=== PATIENT | male | born 1945 | race Caucasian/White ===

== ENCOUNTER 2018-07-08 11:52 | Inpatient (IN) | payer OTHER ==
[~2018-07-08] VITALS: Ht 175.3 cm; Wt 63.5 kg
[2018-07-08] MEDS ORDERED: SODIUM CHLORIDE 0.9% 1,000 ML IVB ONE (12:40)
[2018-07-08 13:25] LABS: Basophils # (auto) 0 uL; Basophils % (auto) 0.6 % (0.0-2.0); Eosinophils # (auto) 0 uL; Eosinophils % (auto) 0.8 % (0.0-7.0); Hematocrit 41.3 % (41.0-53.0); Hemoglobin 13.9 g/dL (13.5-17.5); Lymphocytes # (auto) 0.8 uL; Lymphocytes % (auto) 19.4 % (10.0-50.0); Mean Corpuscular Hemoglobin 30.2 pg (28.0-32.0); Mean Corpuscular Hgb Conc. 33.8 g/dL (32.0-36.0); Mean Corpuscular Volume 89.3 fL (80.0-100.0); Monocytes # (auto) 0.6 uL; Monocytes % (auto) 13.3 % (0.0-12.0); Neutrophils # (auto) 2.7 uL; Neutrophils % (auto) 65.9 % (37.0-80.0); Nucleated Red Blood Cells % 0.2 %; Platelet Count (auto) 161 10^3/uL (140-450); Red Blood Cells 4.62 10^6/uL (4.5-5.90); Red Cell Distribution Width 14.1 % (11.8-14.3); White Blood Cell 4.1 10^3/uL (4.4-10.8)
[2018-07-08 13:25] LABS: Urine Bacteria NONE SEEN /hpf (None Seen); Urine Blood Negative /uL (Negative); Urine Mucus FEW (None Seen); Urine Specific Gravity 1.008 (1.001-1.035); Urine WBC 1 /hpf (0 - 3)
[2018-07-08 13:41] LABS: INR 0.96 (0.9-1.15); Partial Thromboplastin Time 28.2 sec (23.78-33.04); Prothrombin Time 10.3 sec (9.27-12.13)
[2018-07-08 13:43] LABS: Alanine Aminotransferase 46 U/L (16-61); Albumin 2.9 g/dL (3.4-5.0); Anion Gap 10 (5-15); Aspartate Aminotransferase 21 U/L (15-37); BUN/Creatinine Ratio 22.4; Blood Urea Nitrogen 11 mg/dL (7-18); Calcium 7.9 mg/dL (8.5-10.1); Carbon Dioxide 23 mmol/L (21-32); Chloride 112 mmol/L (98-107); GFR African American 215 mL/min; GFR Non-African American 178 mL/min; Glucose 83 mg/dL (74-106); Magnesium 2.1 mg/dL (1.6-2.6); Potassium 4.1 mmol/L (3.5-5.1); Sodium 145 mmol/L (136-145)
[2018-07-08 13:48] LABS: Alkaline Phosphatase 78 U/L (45-117); Bilirubin, Total 0.5 mg/dL (0.2-1.0); Total Protein 5.9 g/dL (6.4-8.2)
[2018-07-08] MEDS ORDERED: SENNA 8.6 MG TAB PO PRN (15:15)
[2018-07-08] MEDS ORDERED: cloNIDine HCL 0.1 MG TAB PO PRN (15:15)
[2018-07-08] MEDS ORDERED: CALAMINE TOPical LOTION180 ML TOP PRN (15:15)
[2018-07-08] MEDS ORDERED: CALCIUM CARB 500 MG CHEW TAB PO PRN (15:15)
[2018-07-08] MEDS ORDERED: TEMAZEPAM 15 MG CAP PO PRN (15:30)
[2018-07-08] MEDS ORDERED: NITROGLYCERIN 0.4 MG SL TAB SL PRN (15:30)
[2018-07-08] MEDS ORDERED: MORPHINE SULF INJ 2 MG/ML SYRINGE 1ML IV PRN ×2 (15:30)
[2018-07-08] MEDS ORDERED: ONDANSETRON HCL 4 MG/2 ML VIAL IV PRN (15:30)
[2018-07-08] MEDS ORDERED: HYDROcodone-ACET 5/325MG TAB PO PRN (15:30)
[2018-07-08] MEDS ORDERED: DOCUSATE SOD 100 MG CAP PO PRN (15:30)
[2018-07-08] MEDS ORDERED: ACETAMINOPHEN 325 MG TAB PO PRN (15:30)
[2018-07-08] MEDS: NICOTINE 14 MG/24HR TOPICAL PATCH TD SCH (15:45)
[2018-07-08] MEDS ORDERED: NICO14DI29 TD (16:01)
[2018-07-08] MEDS ORDERED: ASCO500T11 PO (16:01)
[2018-07-08] MEDS ORDERED: POLY33504 PO (16:01)
[2018-07-08] MEDS ORDERED: MULT-18 OR (16:01)
[2018-07-08] MEDS ORDERED: OME20T PO (16:01)
[2018-07-08] MEDS ORDERED: CLOP75TA41 PO (16:01)
[2018-07-08] MEDS ORDERED: CALC500C3 PO (16:01)
[2018-07-08] MEDS ORDERED: ZIN220C GT (16:01)
[2018-07-08] MEDS ORDERED: ATO40T PO (16:01)
[2018-07-08] MEDS ORDERED: ASPI-231 PO (16:01)
[2018-07-08] MEDS ORDERED: BENA20TA14 PO (16:01)
[2018-07-08] MEDS ORDERED: SERT-274 PO (16:01)
[2018-07-08] MEDS ORDERED: SENN-58 PO (16:01)
[2018-07-08] MEDS ORDERED: ACET325T82 PO (16:01)
[2018-07-08 20:27] VITALS: BP 111/58
[2018-07-08] MEDS: SODIUM CHLOR 0.9% PF (SALINE LOCK) 10ML VIAL/SYR IV SCH (21:44)
[2018-07-08] MEDS: Ensure Enlive Strawberry 8oz Bottle PO SCH (21:44)
[2018-07-08] MEDS: FAMOTIDINE 20 MG TAB PO SCH (21:45)
[2018-07-08 22:00] VITALS: BP 111/58
[2018-07-08] MEDS ORDERED: ATORVASTATIN 20 MG TAB PO SCH (22:00)
[2018-07-09 05:00] VITALS: BP 132/65
[2018-07-09] MEDS: SODIUM CHLOR 0.9% PF (SALINE LOCK) 10ML VIAL/SYR IV SCH (06:11)
[2018-07-09 06:40] LABS: Basophils # (auto) 0 uL; Basophils % (auto) 0.4 % (0.0-2.0); Eosinophils # (auto) 0.1 uL; Eosinophils % (auto) 1.5 % (0.0-7.0); Hematocrit 43.8 % (41.0-53.0); Hemoglobin 14.8 g/dL (13.5-17.5); Lymphocytes % (auto) 22.1 % (10.0-50.0); Mean Corpuscular Hemoglobin 30.2 pg (28.0-32.0); Mean Corpuscular Hgb Conc. 33.9 g/dL (32.0-36.0); Mean Corpuscular Volume 89.2 fL (80.0-100.0); Monocytes # (auto) 0.6 uL; Monocytes % (auto) 13.5 % (0.0-12.0); Neutrophils # (auto) 2.8 uL; Neutrophils % (auto) 62.5 % (37.0-80.0); Nucleated Red Blood Cells % 0.1 %; Platelet Count (auto) 176 10^3/uL (140-450); Red Blood Cells 4.91 10^6/uL (4.5-5.90); Red Cell Distribution Width 14.1 % (11.8-14.3); White Blood Cell 4.5 10^3/uL (4.4-10.8)
[2018-07-09 07:16] LABS: Albumin 3.2 g/dL (3.4-5.0); BUN/Creatinine Ratio 20.3; Bilirubin, Total 0.6 mg/dL (0.2-1.0); Calcium 8.9 mg/dL (8.5-10.1); Potassium 4.6 mmol/L (3.5-5.1); Total Protein 6.4 g/dL (6.4-8.2)
[2018-07-09 08:00] VITALS: BP 144/77
[2018-07-09] MEDS ORDERED: ASPirin-EC 81 mg tab PO SCH (10:00)
[2018-07-09] MEDS ORDERED: POLYETHYLENE GLYCOL 17 GM PWDR PO SCH (10:00)
[2018-07-09] MEDS ORDERED: SERTRALINE HCL 50 MG TAB PO SCH (10:00)
[2018-07-09] MEDS ORDERED: CLOPIDOGREL BISULFATE 75 MG TAB PO SCH (10:00)
[2018-07-09] MEDS ORDERED: B-COMPLEX W/ C & FOLIC ACID(NEPHROVITE TAB) PO SCH (10:00)
[2018-07-09] MEDS ORDERED: ZINC SULFATE 220mg CAP or TAB PO SCH (10:00)
[2018-07-09] MEDS ORDERED: ASCORBIC ACID 500 MG TAB PO SCH (10:00)
[2018-07-09] MEDS ORDERED: BENAZEPRIL HCL 10 MG TAB PO SCH (10:00)
[2018-07-09] MEDS ORDERED: MULTIPLE VITAMIN TAB PO SCH (10:00)
[2018-07-09] MEDS: Ensure Enlive Strawberry 8oz Bottle PO SCH (10:26)
[2018-07-09] MEDS: FAMOTIDINE 20 MG TAB PO SCH (10:29)
[2018-07-09] MEDS: NICOTINE 14 MG/24HR TOPICAL PATCH TD SCH (10:29)
[2018-07-09 12:00] VITALS: BP 130/77
[2018-07-09 16:00] VITALS: BP 133/83
[2018-07-09 22:00] VITALS: BP 119/75
== END 2018-07-09 22:40 | disposition short-term general hospital (02) | DRG 315 ==
LOC: EDBD 11:52 → ER 11:55 → TELE 11:56 → TELE-EAST 18:47
PROVIDERS: ADMIT Internal Medicine; ATTEND Family Medicine
DX: I95.9 Hypotension, unspecified (principal); E44.0 Moderate protein-calorie malnutrition; I69.354 Hemiplegia and hemiparesis following cerebral infarction affecting left non-dominant side; E83.51 Hypocalcemia; E78.5 Hyperlipidemia, unspecified; I10 Essential (primary) hypertension; I70.0 Atherosclerosis of aorta; I25.10 Atherosclerotic heart disease of native coronary artery without angina pectoris; Z95.1 Presence of aortocoronary bypass graft; Z68.20 Body mass index [BMI] 20.0-20.9, adult
CPT/HCPCS: 36415; 71045; 80053; 81001; 83735; 84484; 85025; 85610; 85730; 87081; 93005; 94761; 97163